=== PATIENT | female | born 1960 | race African-American/Black ===

== ENCOUNTER 2022-02-08 00:42 | Emergency (ER) | payer OTHER ==
[~2022-02-08] VITALS: Ht 167.6 cm; Wt 75.0 kg
[2022-02-08 01:01] VITALS: BP 186/96
[2022-02-08] MEDS ORDERED: ASPIRIN 81MG TABLET PO ONE (02:00)
[2022-02-08 02:11] LABS: BASOPHILS % 0.3 % (0.0-2.0); EOSINOPHILS % 1.2 % (0.0-5.0); HEMATOCRIT. 38.1 % (36.0-48.0); HEMOGLOBIN. 12.5 g/dL (12.0-16.0); LYMPHOCYTES % 32.4 % (20.0-50.0); MEAN CORPUSCULAR HEMOGLOBIN 31.1 pg (28.0-32.0); MEAN CORPUSCULAR VOLUME 94.3 fL (81.0-99.0); MEAN PLATELET VOLUME 9.5 fl (7.4-10.4); MONOCYTES % 8.8 % (2.0-8.0); NEUTROPHILS % 57.3 % (40.0-76.0); PLATELET 239 x1000/uL (130-400); RED BLOOD CELL COUNT 4.04 mill/uL (4.2-5.4)
[2022-02-08 02:18] LABS: CHLORIDE 103 mEq/L (98-107)
[2022-02-08 02:27] LABS: BETA HYDROXYBUTYRATE 0.6 mMol/L (0.0-0.3)
[2022-02-08] MEDS ORDERED: HYDROCODONE/ACETAMINOPHEN 5/325MG TABLET PO ONE (05:30)
== END 2022-02-08 05:50 | disposition left against medical advice (07) ==
LOC: ER 00:42
DX: M62.81 Muscle weakness (generalized) (principal); N17.9 Acute kidney failure, unspecified; E11.65 Type 2 diabetes mellitus with hyperglycemia; J44.9 Chronic obstructive pulmonary disease, unspecified; I10 Essential (primary) hypertension; G62.9 Polyneuropathy, unspecified; M79.7 Fibromyalgia; Z79.4 Long term (current) use of insulin; Z98.890 Other specified postprocedural states
CPT/HCPCS: 36415; 70450; 71045; 80053; 82010; 82962; 83880; 84484; 85025; 93005; 99285; Z7610